=== PATIENT | male | born 1995 | race Caucasian/White ===

== ENCOUNTER 2017-04-26 20:56 | Emergency (ER) | payer MEDICAID, OTHER ==
[~2017-04-26] VITALS: Ht 177.8 cm; Wt 61.2 kg
[2017-04-26 23:19] VITALS: BP 141/74
== END 2017-04-26 23:22 | disposition home or self-care (01) ==
LOC: M ED 22:59
DX: J02.9 Acute pharyngitis, unspecified (principal)

== ENCOUNTER 2017-10-28 11:32 | Emergency (ER) | payer OTHER ==
[~2017-10-28] VITALS: Ht 175.3 cm; Wt 72.7 kg
[~2017-10-28 11:32] MED LIST: AMOX875T2 PO; IBUPOTC PO
[2017-10-28 11:33] VITALS: BP 128/70
[2017-10-28] MEDS ORDERED: BACT800T5 PO (12:09)
== END 2017-10-28 12:26 | disposition home or self-care (01) ==
LOC: M ED 11:32
DX: S81.012A Laceration without foreign body, left knee, initial encounter (principal); W22.8XXA Striking against or struck by other objects, initial encounter; Y92.9 Unspecified place or not applicable; Y93.9 Activity, unspecified; Y99.0 Civilian activity done for income or pay

== ENCOUNTER 2022-09-05 02:24 | Emergency (ER) | payer OTHER, SELFPAY ==
[~2022-09-05] VITALS: Ht 175.3 cm; Wt 90.9 kg
[~2022-09-05 02:24] MED LIST changes: +BACT800T5 PO
[2022-09-05] MEDS ORDERED: NS 1,000 ML IV ONE ×3 (02:45→07:00)
[2022-09-05] MEDS ORDERED: ACETAMINOPHEN TAB 650MG DOSE (2X325MG) PO ONE (02:45)
[2022-09-05 03:36] LABS: BASO # 0.1 10^3/uL (0.0-0.2); BASO % 0.8 % (0.0-1.0); EOS # 0.1 10^3/uL (0.0-0.5); EOS % 0.6 % (0.0-3.0); HEMOGLOBIN 15.3 g/dl (13.5-17.5); LYMPH # 0.3 10^3/uL (1.5-5.0); LYMPH % 3.9 % (24.0-44.0); MEAN CORPUSCULAR HEMOGLOBIN 28.1 pg (27.0-33.0); MEAN CORPUSCULAR VOLUME 82.7 fl (80.0-96.0); MONO % 12.3 % (2.0-8.0); NEUTROPHILS # 6.4 10^3/uL (1.5-8.5); NEUTROPHILS % 81.3 % (36.0-66.0); PLATELET COUNT, AUTOMATED 243 10^3/uL (150-450); RED BLOOD COUNT 5.44 10^6/uL (4.30-6.10); WHITE BLOOD COUNT 7.9 10^3/uL (4.0-10.0)
[2022-09-05 04:23] LABS: ALT/SGPT 42 U/L (12-78); BILIRUBIN,TOTAL 0.9 MG/DL (0.2-1.0); BLOOD UREA NITROGEN 15 MG/DL (7-18); CALCIUM LEVEL 9.1 MG/DL (8.5-10.1); CARBON DIOXIDE LEVEL 26 MEQ/L (21-32); CHLORIDE LEVEL 104 MEQ/L (98-107); CREATININE FOR GFR 1.29 MG/DL (0.70-1.30); GLOMERULAR FILTRATION RATE > 60.0 (>60); GLUCOSE, FASTING 111 MG/DL (70-100); MAGNESIUM LEVEL 1.8 MG/DL (1.8-2.4); POTASSIUM SERUM 4.2 MEQ/L (3.5-5.1); SODIUM LEVEL 136 MEQ/L (136-145); TOTAL PROTEIN 7.2 GM/DL (6.4-8.2)
[2022-09-05] MEDS ORDERED: ISOVUE-370 76% 100ML VIAL As Ordered ONE (06:14)
[2022-09-05 06:50] LABS: APPEARANCE, URINE MANUAL CLEAR (CLEAR); COLOR, URINE MANUAL YELLOW (YELLOW)
[2022-09-05 06:51] LABS: BILIRUBIN, URINE MANUAL NEGATIVE (NEGATIVE); BLOOD URINE MANUAL NEGATIVE (NEGATIVE); GLUCOSE, URINE (UA) MANUAL NEGATIVE (NEGATIVE); KETONE, URINE MANUAL NEGATIVE (NEGATIVE); LEUKOCYTE ESTERASE, URINE MAN NEGATIVE (NEGATIVE); NITRITE, URINE MANUAL NEGATIVE (NEGATIVE); PROTEIN, URINE MANUAL NEGATIVE (NEGATIVE); UROBILINOGEN, URINE MANUAL NORMAL (NORMAL)
[2022-09-05 08:46] VITALS: BP 114/68
== END 2022-09-05 08:57 | disposition home or self-care (01) ==
LOC: M ED 02:24
DX: R50.9 Fever, unspecified (principal); R00.0 Tachycardia, unspecified
CPT/HCPCS: 71045; 71275; 80053; 81002; 83605; 83735; 85025; 87040; 87486; 87581; 87633; 87798; 87880; 93005; 96360; 96361; 99284; Q9967